=== PATIENT | female | born 1995 | race African-American/Black ===

== ENCOUNTER 2016-09-30 12:58 | Emergency (ER) | payer MEDICAID, OTHER ==
[~2016-09-30] VITALS: Ht 157.5 cm; Wt 65.0 kg
[2016-09-30] MEDS ORDERED: HYDROCODONE/ACETAMINOPHEN 5/325MG TABLET PO ONE (15:15)
[2016-09-30] MEDS ORDERED: MORPHINE SULFATE 4 MG/ML CPJ (NOT FOR IM USE) IV ONE (16:00)
[2016-09-30] MEDS ORDERED: SODIUM CHLORIDE 0.9% 500 ML IV ONE (16:00)
[2016-09-30] MEDS ORDERED: ONDANSETRON HCL 4MG/2ML VIAL IV ONE (16:00)
[2016-09-30] MEDS ORDERED: ONDANSETRON 4MG ODT PO ONE (16:00)
[2016-09-30] MEDS ORDERED: DIPHENHYDRAMINE 50MG/ML VIAL IV ONE (16:30)
[2016-09-30] MEDS ORDERED: CEFTRIAXONE SODIUM 500 MG/VIAL IM ONE (16:30)
[2016-09-30] MEDS ORDERED: LIDOCAINE HCL 1% 20ML VIAL (Pyxis) INJ INFIL ONE (16:30)
[2016-09-30] MEDS ORDERED: AZITHROMYCIN 500 MG TABLET PO ONE (16:30)
[2016-09-30 18:01] VITALS: BP 109/68
[2016-10-05 04:13] LABS: CHLAMYDIA TRACHOMATIS NAA Negative (Negative); NEISSERIA GONORRHOEAE NAA Negative (Negative)
== END 2016-09-30 18:02 | disposition home or self-care (01) ==
LOC: ER 15:11
DX: L03.115 Cellulitis of right lower limb (principal); N76.0 Acute vaginitis; F17.290 Nicotine dependence, other tobacco product, uncomplicated; F12.10 Cannabis abuse, uncomplicated
CPT/HCPCS: 87210; 87491; 87591; 96372; 96374; 96375; 99284; J0696; J1200; J2270; J2405; J3490; J7040

== ENCOUNTER 2016-10-04 08:48 | Emergency (ER) | payer MEDICAID ==
[~2016-10-04] VITALS: Ht 160 cm; Wt 55.0 kg
[2016-10-04] MEDS ORDERED: KETOROLAC 60MG/2ML VIAL IM ONE (09:30)
[2016-10-04] MEDS ORDERED: LORAZEPAM 1MG TABLET PO ONE (09:30)
[2016-10-04] MEDS ORDERED: LIDOCAINE HCL 1% 20ML VIAL (Pyxis) INJ INFIL ONE (10:45)
[2016-10-04 12:29] VITALS: BP 122/61
== END 2016-10-04 12:32 | disposition home or self-care (01) ==
LOC: ER 09:21
PROC: 0HQFXZZ Repair Right Hand Skin, External Approach (ICD-10-PCS; principal; 2016-10-04)
DX: S61.421A Laceration with foreign body of right hand, initial encounter (principal); W18.02XA Striking against glass with subsequent fall, initial encounter; Y93.89 Activity, other specified; Y92.098 Other place in other non-institutional residence as the place of occurrence of the external cause
CPT/HCPCS: 12002; 73130; 96372; 99284; A4217; J1885; J3490; X7700; Z7610

== ENCOUNTER 2018-05-14 09:23 | Emergency (ER) | payer SELFPAY ==
[~2018-05-14] VITALS: Ht 154.9 cm; Wt 73.0 kg
[2018-05-14 12:53] VITALS: BP 112/65
== END 2018-05-14 12:56 | disposition home or self-care (01) ==
LOC: ER 09:54
DX: S71.111A Laceration without foreign body, right thigh, initial encounter (principal); S43.402A Unspecified sprain of left shoulder joint, initial encounter; L03.115 Cellulitis of right lower limb; W26.8XXA Contact with other sharp object(s), not elsewhere classified, initial encounter; Y93.89 Activity, other specified; Y92.89 Other specified places as the place of occurrence of the external cause; Y99.8 Other external cause status
CPT/HCPCS: 99283

== ENCOUNTER 2024-02-16 22:30 | Emergency (ER) | payer OTHER ==
[~2024-02-16] VITALS: Ht 160 cm; Wt 79.5 kg
[2024-02-16 22:38] VITALS: BP 152/92; PULSE 71; RESP 16; TEMP 98.2; O2SAT 98
[2024-02-16 23:25] LABS: CLARITY URINE CLEAR (CLEAR); COLOR URINE YELLOW (YELLOW); GLUCOSE URINE NEGATIVE (NEGATIVE); KETONES URINE NEGATIVE (NEGATIVE); LEUKOCYTE ESTERASE URINE NEGATIVE (NEGATIVE); NITRITE URINE NEGATIVE (NEGATIVE); OCCULT BLOOD URINE NEGATIVE (NEGATIVE); PROTEIN URINE NEGATIVE (NEGATIVE); UROBILINOGEN URINE 0.2 E.U./dL (0.2-1.0)
== END 2024-02-17 01:11 | disposition home or self-care (01) ==
LOC: ER 22:38
DX: N93.9 Abnormal uterine and vaginal bleeding, unspecified (principal); Z98.890 Other specified postprocedural states
CPT/HCPCS: 81003; 81025; 99283